=== PATIENT | female | born 1975 | race Caucasian/White ===

== ENCOUNTER 2024-04-19 10:28 | Emergency (ER) | payer SELFPAY ==
[2024-04-19 10:34] VITALS: BP 147/80; PULSE 91; RESP 17; TEMP 36.8; O2SAT 95; BMI 18.0
--- NOTE | 2024-04-19 10:38 | ED_ITS ---
HPI - Headache General: Chief Complaint: Headache Stated Complaint: Headache Time Seen by Provider: 04/19/24 10:29 Source: patient Mode of arrival: ambulatory Limitations: no limitations History of Present Illness: Patient is a 48-year-old female with longstanding history of migraine headaches here for complaints of a headache. Patient states she has suffered from headaches ever since 2000 after she fell and struck the back of her head. She states she will get headaches almost daily but that she will get a severe migraine at least once a week. She states her migraine headaches are normally alleviated with [id number] analgesics and [id number] migraine medications but this one has not. She states she has had a headache for approximately 2 weeks. She states her headache today feels identical to previous migraines and only difference is that is not responding to her typical medications. She states with her migraines she normally gets nauseous, has photophobia, and some vertigo. She has all of the symptoms today. She is ambulatory back to her room without difficulty or assistance. She has never seen a neurologist or headache specialist. MD elicited complaint: headache and migraine Pertinent past history: migraines Onset (ago): week(s) Severity: severe Pain scale (0-10): 10 Exacerbating factors: light and noise Relieving factors: nothing Associated symptoms: Reports nausea; Deny chest pain, confusion, fever(s), lightheadedness, malaise, rash, syncope or vomiting Treatments prior to arrival: acetaminophen, ibuprofen and migraine medication Related Data Home Medications Medication Instructions Recorded Confirmed No Known Home Medications 04/19/24 04/19/24 Allergies Allergy/AdvReac Type Severity Reaction Status Date / Time No Known Allergies Allergy Verified 04/19/24 10:37 Review of Systems Const: Denies: fever(s), chills, body aches, fatigue or malaise Eyes: Reports: photophobia; Denies: change in vision, blurry vision, floaters or seeing flashes Card: Denies: chest pain, palpitations, irregular heart rhythm, lightheadedness, syncope or dyspnea on exertion Resp: Denies: dyspnea, productive cough or pain on inspiration GI: Reports: nausea; Denies: abdominal pain, vomiting, heartburn or diarrhea : Denies: dysuria Musc: Denies: neck pain, back pain, extremity pain, extremity swelling or joint pain Skin/Breast: Denies: rash Neuro: Reports: headache(s) and vertigo; Denies: numbness in extremities, weakness in extremities, sensory changes, lack of coordination, difficulty walking, frequent falls, confusion, behavioral changes, Slurred speech present, difficulty communicating thoughts or seizure- like activity Physical Exam Const: COMMON NORMALS: no acute distress, average body habitus, patient oriented x3, no limitations, healthy appearing, alert and well nourished GENERAL APPEARANCE: cooperative ORIENTATION/CONSCIOUSNESS: Yes awake, Yes oriented to person, Yes oriented to place and Yes oriented to time HENMT: COMMON NORMALS: normocephalic and atraumatic HEAD & SCALP: normal to inspection, normocephalic and atraumatic FACE & SINUS: face symmetric Eye: COMMON NORMALS: Equal, round and reactive pupils present and EOMs intact bilaterally GENERAL EYE: appearance normal, both eyes and all related structures and normal light reflex PUPIL: Yes Equal, round and reactive pupils present DIRECT OPHTHALMOSCOPY: Yes normal light reflex Neck/C-Spine: COMMON NORMALS: full ROM, no lymphadenopathy, supple and no meningeal signs Resp: COMMON NORMALS: normal respiratory effort and clear to auscultation bilaterally AUSCULTATION: clear to auscultation bilaterally Cardio: COMMON NORMALS: regular rate and regular rhythm RATE: regular rate RHYTHM: regular rhythm Neuro: ISADOAR COMA SCALE: document GCS findings Morris coma scale eye opening: Spontaneous Morris coma scale verbal response: Orientated Morris coma scale motor response: Obey commands Isadora coma scale total score: 15 COMMON NORMALS: patient oriented x3, CN's II-XII intact bilaterally, moves all extremities, no focal motor deficits, no sensory deficits noted and gait normal SENSORIUM/ORIENTATION: Yes alert, Yes oriented to person, Yes oriented to place and Yes oriented to time MENINGEAL SIGNS: Yes no meningeal signs Skin: COMMON NORMALS: no rashes or lesions noted GENERAL SKIN EXAM: no rashes or lesions noted Course Vital Signs: Vital signs: Vital Signs Temperature 98.3 F 04/19/24 10:34 Pulse Rate 77 04/19/24 11:18 Respiratory Rate 16 04/19/24 11:18 Blood Pressure 139/82 04/19/24 11:18 Pulse Oximetry 100 04/19/24 11:18 Oxygen Delivery Me thod Room Air 04/19/24 11:18 MDM - Headache Medical Decision Making TORRES trending down with medications given here. She states she feels comfortable going home at this time. Will place referral for neurology for further evaluatio n and treatment options of her chronic migraines. Return precautions discussed. Differential Diagnosis Likely migraine Medical Records I reviewed the patient's medical records. No radiology studies performed this visit Discharge Plan Discharge Patient Disposition: Home Clinical Impression: Migraine Qualifiers: Migraine type: unspecified Status migrainosus presence: with status migrainosus Intractability: not intractable Qualified Code(s): G43.901 - Migraine, unspecified, not intractable, with status migrainosus Condition: Stable Prescriptions: No Action No Known Home Medications Discharge Orders: Discharge ED (Routine); Ordered 04/19/24 Ordered By: Margaux Syed Patient Instructions: Headache - Migraine (Adult), Migraine Headache (ED) Coding Level of Care Code ED [employer] for [employer] [facility]
[2024-04-19 11:18] VITALS: BP 139/82; PULSE 77; RESP 16; O2SAT 100
[2024-04-19] MEDS: sodium chloride 0.9% 1,000 ML 999 ML IV (11:25)
[2024-04-19] MEDS: ondansetron 2 mg/ML SDV 2 mL 4 MG IVP (11:26)
[2024-04-19] MEDS: dexamethasone 10 mg/mL INJ 6 MG IV (11:26)
[2024-04-19] MEDS: diphenhydrAMINE 50 mg/mL SDV 1mL 25 MG IVP (11:27)
[2024-04-19] MEDS: ketorolac 60 mg/2 mL INJ 30 MG IVP (11:27)
[2024-04-19] MEDS: SUMAtriptan 6 mg/0.5 mL SDV SUBCUT (12:12)
[2024-04-19 13:55] VITALS: BP 110/49; PULSE 76; RESP 16; O2SAT 98
--- NOTE | 2024-04-19 15:09 | DCPLANNER ---
messaged neuro for er f/u
== END 2024-04-19 13:49 | disposition home or self-care (01) ==
PROVIDERS: Emergency Provider Physician Assistant
DX: G43.901 Migraine, unspecified, not intractable, with status migrainosus (principal)
CPT/HCPCS: 96372; 96374; 96375; 99284; J1100; J1200; J1885; J2405; J3030; J7030